=== PATIENT | female | born 1975 ===

== ENCOUNTER 2016-11-15 07:15 | Day surgery (SDC) | payer OTHER ==
[~2016-11-15] VITALS: Ht 170.2 cm; Wt 131.1 kg
[2016-11-15 07:55] VITALS: BP 134/76
[2016-11-15 10:03] VITALS: BP 129/84
== END 2016-11-15 10:20 | disposition home or self-care (01) ==
LOC: GI 07:15 → OR 10:30 → GI 10:30
PROVIDERS: Internal Medicine Gastroenterology
PROC: 0DJ08ZZ Inspection of Upper Intestinal Tract, Via Natural or Artificial Opening Endoscopic (ICD-10-PCS; principal; 2016-11-15 09:30)
DX: R10.9 Unspecified abdominal pain (principal); R63.4 Abnormal weight loss; R11.2 Nausea with vomiting, unspecified; Z98.84 Bariatric surgery status; Z68.44 Body mass index [BMI] 60.0-69.9, adult
CPT/HCPCS: 43235; J1200; J1610; J2250; J2310; J3010; J3490